=== PATIENT | female | born 1955 | race American Indian/Alaskan Native ===

== ENCOUNTER 2019-02-16 09:25 | Outpatient (CLI) | payer OTHER ==
--- NOTE | 2019-02-16 16:37 | Mammography Report ---
DIGITAL SCREENING MAMMOGRAM WITH CAD, 02/16/2019 INDICATION: Routine screening mammography. TECHNIQUE: Digital bilateral 2D mammography was obtained in the craniocaudal and mediolateral obliq ue projections. This examination was interpreted with the benefit of Computer-Aided Detection analysi s. COMPARISON: None available. FINDINGS: Breast Density: The breasts are almost entirely fatty. There is no evidence of dominant mass, suspicious calcifications or architectural distortion in eithe r breast. Bilateral benign arterial calcifications. IMPRESSION: Mammographic evidence of malignancy. Follow up recommendation: Routine yearly BI-RADS Category 2: Benign. A "normal" or negative report should not discourage follow up or biopsy of a clinically significant f inding. A written summary of these findings will be mailed to the patient. The patient will be entered into a mammography reporting system which will generate a reminder letter for the patient's next appointmen t at the appropriate interval. The [employer] recommends yearly mammograms starting at age 40 and continuing as l petra as a woman is in good health. Breast MRI is recommended for women with an approximate 20-25% or greater lifetime risk of breast cancer, including women with a strong family history of breast or ova cameron cancer or who have been treated for Hodgkin's disease. Signer Name: Amor Oconnor MD Signed: 02/16/2019 4:32 PM Workstation Name: [id number]
== END 2019-02-16 09:26 | disposition home or self-care (01) ==
LOC: MAMMO 09:25
DX: Z12.31 Encounter for screening mammogram for malignant neoplasm of breast (principal)
CPT/HCPCS: 77067